=== PATIENT | male | born 1960 | race Caucasian/White ===

== ENCOUNTER → 2019-01-18 | Outpatient (CLI) | payer SELFPAY ==
[~2019-01-18] MED LIST: LISI20TA PO; MELO15TA28 PO; METF-414 PO; METF500T4 PO; PIOG1TAB36 PO; PRAV20TA2 PO
[2019-01-18 09:12] LABS: HEMATOCRIT 38.5 % (42.0-52.0); HEMOGLOBIN 13.4 g/dl (13.5-17.5); MEAN CORPUSCULAR HEMOGLOBIN 34.3 pg (27.0-33.0); MEAN CORPUSCULAR HGB CONC 34.8 g/dl (32.0-36.5); MEAN CORPUSCULAR VOLUME 98.5 fl (80.0-96.0); PLATELET COUNT, AUTOMATED 262 10^3/uL (150-450); RED BLOOD COUNT 3.91 10^6/uL (4.30-6.10); WHITE BLOOD COUNT 5.4 10^3/uL (4.0-10.0)
[2019-01-18 09:31] LABS: INR 0.94; PROTHROMBIN TIME 12.7 SECONDS (12.1-14.4)
--- NOTE | 2019-01-18 09:40 | REP ---
Clinical: Preoperative assessment . Comparison: None . Technique: PA and lateral. Findings: The mediastinum and cardiac silhouette are normal. Airway is patent and midline. 9 mm nodular density in the right upper lobe. The lung david are otherwise clear and without focal consolidation, effusion, or pneumothorax. Skeletal structures are intact. Impression: 1. 9 mm nodule in the right upper lobe likely calcified granuloma. However no prior examinations are available for comparison and outpatient follow-up CT examination may be warranted for confirmation. 2. Otherwise normal chest x-ray. Electronically Signed by Arslan Garcia MD 01/18/2019 09:32 A
[2019-01-18 09:49] LABS: ALBUMIN 3.9 GM/DL (3.2-5.2); ALT/SGPT 34 U/L (12-78); BILIRUBIN,TOTAL 0.6 MG/DL (0.2-1.0); BLOOD UREA NITROGEN 27 MG/DL (7-18); CALCIUM LEVEL 9.1 MG/DL (8.5-10.1); CARBON DIOXIDE LEVEL 29 MEQ/L (21-32); CHLORIDE LEVEL 103 MEQ/L (98-107); CREATININE FOR GFR 1.26 MG/DL (0.70-1.30); GLOMERULAR FILTRATION RATE > 60.0 (>56); GLUCOSE, FASTING 203 MG/DL (70-100); POTASSIUM SERUM 4.3 MEQ/L (3.5-5.1); SODIUM LEVEL 139 MEQ/L (136-145); TOTAL PROTEIN 7.5 GM/DL (6.4-8.2)
[2019-01-18 10:27] LABS: ERYTHROCYTE SEDIMENTATION RATE 29 mm/hr (0-20)
--- NOTE | 2019-01-18 14:22 | ECGEPIP ---
Stationary ECG Study [facility] Test Date: 2019-01-18 Pat Name: BRISEIDA GALLEGO Department: Room: - Gender: M Services Executive: [facility] : 1960 Requested By: Swetha Bob Order Number: [id number] Reading MD: Adrián Hernandez Measurements Intervals [place] Rate: 71 P: 37 CO: 138 QRS: 5 QRSD: 93 T: 25 QT: 386 QTc: 421 Interpretive Statements SINUS RHYTHM Baseline noise. Poor R wave progression. No prior ECG available for comparison at the time of interpretation. Electronically Signed On 01-18-2019 14:21:52 EST by Adrián Hernandez
== END ==
LOC: M LAB 08:34
PROVIDERS: ATTEND Orthopaedic Surgery
DX: M17.12 Unilateral primary osteoarthritis, left knee (principal); R91.1 Solitary pulmonary nodule; E11.9 Type 2 diabetes mellitus without complications; I10 Essential (primary) hypertension

== ENCOUNTER 2019-02-12 07:30 | Inpatient (IN) | payer SELFPAY ==
--- NOTE | 2019-02-05 15:11 | HPE ---
DATE OF PLANNED ADMISSION: 02/12/2019 ATTENDING PHYSICIAN: Dr. Paulino Mendoza CHIEF COMPLAINT: Left knee pain and stiffness. HISTORY This is a pleasant 58-year-old male patient with progressively worsening left knee pain and stiffness. He has failed conservative treatment and has elected for surgical intervention. He has been consented for a left total knee arthroplasty with Dr. Mendoza. ALLERGIES: No known drug allergies. CURRENT MEDICATIONS - Advil 200 mg two by mouth twice a day as needed - clotrimazole 1% external cream applied to affected area three times a day - glimepiride 2 mg one by mouth daily - lisinopril/hydrochlorothiazide 20 - 12.5, one by mouth daily - metformin 500 mg three by mouth daily, one in the morning, two in the evening - pioglitazone 15 mg one by mouth daily - pravastatin sodium 20 mg one by mouth daily at bedtime PAST MEDICAL HISTORY Diabetes type 2. Hypertension. Hyperlipidemia. PAST SURGICAL HISTORY Left knee arthroscopy and partial meniscectomy. Carpal tunnel release. SOCIAL HISTORY The patient does not smoke or consume alcohol. FAMILY HISTORY Father myocardial infarction ([place]), mother . Brother stroke. Sister leukemia. Two living sisters in good health. REVIEW OF SYSTEMS The patient denies fever, chills, chest pain, shortness breath, nausea, vomiting, diarrhea. He does report pain and stiffness with weightbearing activities in the left knee. PHYSICAL EXAMINATION Height 5 feet 2, weight 185.6, temperature 97.8, blood pressure 134/88, respirations 12, heart rate 78. The patient is well-developed, well-nourished, in no apparent distress. He is normocephalic, atraumatic. Neck is supple and nontender with no lymphadenopathy or jugular venous distention (JVD). S1 and S2 auscultated with no murmurs, rubs, gallops. Lungs: Clear to auscultation bilaterally with no wheezes, rales, or rhonchi. Abdomen: Soft, nontender. The left knee shows no obvious deformity. Overlying skin is intact with no erythema, ecchymosis or rashes. He has intact range of motion. The left lower extremity is well perfused. Intact neurovascular status. EKG with poor R-wave progression, normal sinus rhythm. Chest x-ray: No acute cardiopulmonary process. There is a 9 mm nodule in the right upper lobe, likely calcified granuloma. LABORATORY DATA Red blood count 3.91, hemoglobin 13.4, hematocrit 38.5, white blood count 5.4, ESR 29, BUN 27, creatinine 1.26 and PT 12.7, INR 0.94. Preoperative medical optimization by MARCIE Guzman and Dr. Saini reviewed and available today on the chart. ASSESSMENT Left knee symptomatic osteoarthritis. PLAN Consented for left total knee arthroplasty with Dr. Mendoza.
[2019-02-12] VITALS (7 sets, daily range): BP systolic 152–172; BP diastolic 83–97
[~2019-02-12] VITALS: Ht 160 cm; Wt 86.1 kg
[~2019-02-12 07:30] MED LIST changes: +ACETAMINOPHEN 500 MG TAB PO ONE; +LR 1,000 ML IV ONE
[2019-02-12] MEDS ORDERED: ceFAZolin 1GM INJ (J0690 PER 500MG) As Ordered ONE (09:09)
[2019-02-12] MEDS ORDERED: TRANEXAMIC ACID 100 MG/ML 10ML VIAL As Ordered ONE (09:09)
[2019-02-12] MEDS ORDERED: BUPIVACAINE LIPOSOME/PF 1.3% 20ML VIAL (13.3MG/ML)(EXPAREL)(C9290 PER1MG) As Ordered ONE (09:09)
[2019-02-12] MEDS ORDERED: EPINEPHrine INJ 1 MG/ML 1ML AMP As Ordered ONE (09:09)
[2019-02-12] MEDS ORDERED: BUPIVACAINE HCL 0.25% 10 ML VIAL As Ordered ONE (09:16)
[2019-02-12] MEDS ORDERED: GLIM2TA PO (09:19)
[2019-02-12] MEDS ORDERED: MIDAZOLAM INJ 2 MG/2 ML VIAL (J2250) As Ordered ONE ×2 (09:56→10:19)
[2019-02-12] MEDS ORDERED: fentaNYL 100 MCG/2 ML INJECTION (J3010) As Ordered ONE ×3 (09:56→13:21)
[2019-02-12] MEDS ORDERED: PROPOFOL 200 MG/20 ML VIAL As Ordered ONE ×4 (10:19→12:42)
[2019-02-12] MEDS ORDERED: BUPIVACAINE/DEXTROSE 0.75% 2 ML AMP As Ordered ONE (10:49)
[2019-02-12] MEDS ORDERED: fentaNYL 100 MCG/2 ML INJECTION (J3010) IV ONE (11:00)
[2019-02-12] MEDS ORDERED: MIDAZOLAM INJ 2 MG/2 ML VIAL (J2250) IV ONE (11:00)
[2019-02-12] MEDS ORDERED: PHENYLephrine HCL 500 MCG/5 ML (100MCG/ML) SYRINGE (J2370) As Ordered ONE (11:42)
[2019-02-12] MEDS: fentaNYL 100 MCG/2 ML INJECTION (J3010) IV PRN ×4 (13:22→13:45)
[2019-02-12] MEDS ORDERED: FLEET ENEMA PR PRN (13:30)
[2019-02-12] MEDS ORDERED: HYDROMORPHONE HCL 0.5 MG/ 0.5 ML SYRINGE (J1170 PER 1) IV PRN (13:30)
[2019-02-12] MEDS ORDERED: ONDANSETRON 4MG/2ML VIAL (J2405) IV PRN (13:30)
[2019-02-12] MEDS ORDERED: LR 1,000 ML IV SCH (13:30)
[2019-02-12] MEDS ORDERED: ACETAMINOPHEN TAB 650MG DOSE (2X325MG) PO PRN (13:30)
[2019-02-12] MEDS ORDERED: dexameTHASONE 10 MG/1 ML VIAL PRES.FREE (J1100) ONE (14:13)
[2019-02-12] MEDS ORDERED: ROPIvacaine 0.5% 30 ML INJECTION (J2795 PER 1MG) ONE (14:13)
--- NOTE | 2019-02-12 14:31 | REP ---
KNEE SERIES: TWO VIEWS. HISTORY: Status post arthroplasty. FINDINGS: Two views of the left knee demonstrate that the patient is status post left knee arthroplasty. Tibial, femoral, and patellar prosthetic components are well aligned with respect to each other and their [place] bones. There is interarticular and periarticular soft tissue air. Anterior skin calli are seen. IMPRESSION: Status post left knee arthroplasty. Electronically Signed by Reese Wadsworth MD 02/12/2019 03:06 P
--- NOTE | 2019-02-12 14:34 | REP ---
Clinical: Evaluate for prostatic. Technique: Intraoperative fluoroscopic imaging using C-arm technique. Findings: Three images of the femur demonstrate an intramedullary gio. Total fluoroscopic time 6 seconds. Impression: Limited examination suggests intramedullary gio through portion of the femoral diaphysis. Electronically Signed by Arslan Garcia MD 02/12/2019 02:25 P
[2019-02-12] MEDS: HYDROMORPHONE HCL 0.5 MG/ 0.5 ML SYRINGE (J1170 PER 1) IV PRN ×3 (14:58→22:38)
[2019-02-12] MEDS ORDERED: ONDANSETRON 4 MG ORAL DISINTEGRATING TAB (Q0162 PER 1MG) PO PRN (16:45)
[2019-02-12] MEDS: LR 1,000 ML IV SCH (16:51)
[2019-02-12] MEDS: hydroCHLOROthiazide 12.5 MG CAPSULE PO SCH (19:02)
[2019-02-12] MEDS: LISINOPRIL 20 MG TAB PO SCH (19:02)
[2019-02-12] MEDS ORDERED: HumaLOG INSULIN (NovoLOG) PER UNIT SC SCH (21:00)
[2019-02-12] MEDS ORDERED: PRAVASTATIN 20 MG TAB PO SCH (21:00)
[2019-02-12] MEDS ORDERED: GLUCAGON FOR INJ 1 MG VIAL (J1610) SC PRN (22:45)
[2019-02-12] MEDS ORDERED: DEXTROSE 50% 50 ML SYRINGE IV PRN (22:45)
[2019-02-12] MEDS ORDERED: GLUCOSE 4 GM CHEW TABLET PO PRN (22:45)
[2019-02-13 02:00] VITALS: BP 147/81
[2019-02-13] MEDS: LR 1,000 ML IV SCH (02:00)
[2019-02-13] MEDS: HYDROMORPHONE HCL 0.5 MG/ 0.5 ML SYRINGE (J1170 PER 1) IV PRN (04:00)
[2019-02-13 06:00] VITALS: BP 128/71
[2019-02-13] MEDS ORDERED: PERCOCET 5MG/325MG TAB PO PRN (06:15)
[2019-02-13 07:01] LABS: HEMATOCRIT 32.8 % (42.0-52.0); HEMOGLOBIN 11.7 g/dl (13.5-17.5); MEAN CORPUSCULAR HEMOGLOBIN 34.4 pg (27.0-33.0); MEAN CORPUSCULAR HGB CONC 35.7 g/dl (32.0-36.5); MEAN CORPUSCULAR VOLUME 96.5 fl (80.0-96.0); PLATELET COUNT, AUTOMATED 274 10^3/uL (150-450); WHITE BLOOD COUNT 14.6 10^3/uL (4.0-10.0)
[2019-02-13 07:14] LABS: INR 1.04; PROTHROMBIN TIME 13.7 SECONDS (12.1-14.4)
[2019-02-13 07:19] LABS: BLOOD UREA NITROGEN 20 MG/DL (7-18); CALCIUM LEVEL 8.6 MG/DL (8.5-10.1); CARBON DIOXIDE LEVEL 27 MEQ/L (21-32); CHLORIDE LEVEL 99 MEQ/L (98-107); CREATININE FOR GFR 1.22 MG/DL (0.70-1.30); GLOMERULAR FILTRATION RATE > 60.0 (>56); GLUCOSE, FASTING 225 MG/DL (70-100); POTASSIUM SERUM 3.9 MEQ/L (3.5-5.1); SODIUM LEVEL 135 MEQ/L (136-145)
[2019-02-13] MEDS ORDERED: GLIMEPIRIDE 1 MG TABLET PO SCH (07:30)
[2019-02-13] MEDS: hydroCHLOROthiazide 12.5 MG CAPSULE PO SCH (08:20)
[2019-02-13] MEDS: HumaLOG INSULIN (NovoLOG) PER UNIT SC SCH ×2 (08:21→12:00)
[2019-02-13] MEDS: PERCOCET 5MG/325MG TAB PO PRN ×2 (08:22→12:33)
[2019-02-13 08:23] VITALS: BP 142/79
[2019-02-13] MEDS: LISINOPRIL 20 MG TAB PO SCH (08:23)
[2019-02-13] MEDS ORDERED: PERC5TAB12 PO (08:41)
[2019-02-13] MEDS ORDERED: XARE10TA PO (08:41)
[2019-02-13] MEDS ORDERED: MIRALAX *UNIT DOSE* 17GM PACKET PO SCH (09:00)
[2019-02-13] MEDS ORDERED: MOM 30ML SUSPENSION UDC PO SCH (09:00)
--- NOTE | 2019-02-13 09:03 | CR ---
DATE OF CONSULTATION: 02/12/2019 REASON FOR MEDICAL CONSULTATION: Postoperative medical management. The patient is a 58-year-old male with past medical history of diabetes, hypertension, hyperlipidemia, and osteoarthritis of the left knee who presents this hospitalization for elective left total knee replacement which was done successfully today by Dr. Mendoza. The patient at this time feels a bit nauseous and received IV Zofran, but the pain is under control at 0 out of 10, currently on IV Dilaudid. He denies any chest pain or shortness of breath. Again, past medical history of hypertension, diabetes, hyperlipidemia, and history of osteoarthritis of left knee. He has no known drug allergies. FAMILY HISTORY: Noncontributory. SOCIAL HISTORY: The patient denies tobacco, alcohol or illicit drugs. MEDICATIONS: He takes at home are as follows: - glimepiride 1 mg orally daily - lisinopril 20 mg orally daily - hydrochlorothiazide 12.5 mg orally daily - metformin 500 mg orally daily - pravastatin 20 mg orally at bedtime REVIEW OF SYSTEMS: Negative all 10 major systems except as mentioned in history of present illness (HPI). VITAL SIGNS: Blood pressure 172/89. Heart rate 81 and regular. Respiratory rate 18. Temperature 98.5. Oxygen saturation 98% on room air. HEAD: Atraumatic, normocephalic. NECK: Supple. No jugular venous distention (JVD). LUNGS: Clear to auscultation. S1 and S2 audible. No murmurs appreciated. ABDOMEN: Soft. Positive bowel sounds. No pedal edema. SKIN: Intact. NEUROLOGIC EXAMINATION: Patient awake, alert and oriented times three. No labs to review. IMPRESSION: 1. Left total knee replacement. 2. Hypertension. 3. Diabetes. 4. Hyperlipidemia. PLAN: The patient at this time is stable. I recommend continuing IV Zofran as needed for his nausea. I believe it is secondary to the Dilaudid, but I still think the patient should receive his Dilaudid for knee pain. All of his medications have been reconciled and I believe his elevated blood pressure at this time is because he missed his medications and they were just administered to him. Will follow his blood pressure trends. Will continue following his care alongside orthopedics.
--- NOTE | 2019-02-13 09:10 | RO ---
DATE OF PROCEDURE: 02/12/2019 PREPROCEDURE DIAGNOSIS: Left knee degenerative arthritis. POSTPROCEDURE DIAGNOSIS: Left knee degenerative arthritis. PROCEDURE: Left total knee arthroplasty using a size 5 cruciate retaining femoral component, size 5 tibial tray with a 5 mm rotating platform polyethylene insert and a 35 mm polyethylene button. All components were cemented. Prosthesis was made by [employer]. It was an [employer] knee. SURGEON: Dr. Swetha Mendoza. FOOD ORDER DELIVERY RUNNER: Mr. Ranjith Thornton ANESTHESIA: Spinal with left femoral nerve block. COMPLICATIONS: None. ESTIMATED BLOOD LOSS: About 100 mL. SPECIMENS: Joint surface. PROCEDURE: After a left femoral nerve block and then spinal anesthetic was induced, tourniquet was placed at left upper thigh and not-inflated. The left lower extremity was carefully prepped and draped in the usual sterile fashion. After appropriate time out and elevation, the tourniquet was inflated. A longitudinal incision was then made for medial parapatellar approach to the knee. Bovie cautery was used to coagulate the crossing vessels. Medial parapatellar arthrotomy was performed. Subperiosteal dissection was performed around the proximal, medial and lateral tibial plateaus. The patella was everted and the knee was flexed. The anterior cruciate ligament (ACL) was debrided. I placed the drill down the center of the trochlear notch, just above the posterior cruciate ligament (PCL). Trying to drill down into the femur, it seems as if we had hit a bony block. I was not certain if the angle was wrong. At this point, I called for x-ray to help us understand our alignment of the intramedullary gio to make sure that we get good accurate distal femoral cut and angulation. The T handle awls were also opened and I used the smallest one and eventually was able to find my way down the femoral canal. Under fluoroscopic imaging using the C-Arm, after sterile draping of the C-Arm, I managed to get good C-Arm images in both AP and lateral planes, confirming that this was down the center of the femoral canal. We did not penetrate. There were no other pathology of the femur that would cause this femur to have a bony block. It was expanded with T handle reamer. Subsequently, intramedullary gio could go down the femur. The distal femoral cutting jig was applied. Prior to this, as we were waiting for C-Arm, I did release the tourniquet. Hemostasis was secured with Bovie cautery and I copiously irrigated. We took the tourniquet down for most of the case until the time we were preparing for cementing, because the bleeding was not excessive and I felt we had reasonable visualization without the tourniquet. The distal femoral cutting jig was then applied, set at a 5 degree valgus cut for a left knee at 9 mm resection level. The distal femoral cut was performed. AP sizing jig sized for a number 5 femur. Then 3 degrees of external rotation were dialed in and the pins were placed, followed by the 4-in-1 block and the anterior and posterior chamfer cuts were performed. We then placed the jig for the notch plasty. The notch plasty was performed. Then we exposed the proximal tibia, used the extramedullary gio to estimate being parallel to the mechanical access. We referenced off the medial tibial condyle at 4 mm and then the block was pinned into position. Secondary check of the extramedullary gio confirmed we appeared to be parallel to the mechanical axis. The proximal tibial osteotomy was then performed. The laminar custom stock maker was placed medially and we performed a completion lateral meniscectomy with debridement of the posterior and lateral osteophytes. We then placed the laminar custom stock maker laterally and performed a completion medial meniscectomy and debridement of posterior and medial osteophytes. The spacer block was applied and a 6 mm was a little snug and 5 mm fit very nicely with good symmetry to varus and valgus stress testing both in flexion and in extension. We then exposed the proximal tibia and sized for a #5 tibial tray, which was then pinned into position, followed by the reamer and broach. The trial tibial component was placed, followed by the trial femoral component. We brought the knee into extension, everted the patella and performed a patellar osteotomy and sized for a 35 mm button. The lug holes were drilled. The trial was placed, and the patellofemoral tracking was anatomic. At this point, we removed all the trial components, copiously irrigated out the knee joint, placed Exparel in the subperiosteal tissues around the distal femur and the proximal tibia and then Mr. Thornton mixed the cement on the back table as I prepared the bony surfaces for cementing. We elevated the leg once again and then inflated the tourniquet to 150 mmHg of mercury. We copiously pulsatile lavage irrigated out the knee joint and all the bony debris and dried all the surfaces thoroughly. Mr. Thornton was also critical to the success of this difficult operating by helping with appropriate soft tissue retraction, helped to flex and extend the knee, helped to mix the cement, helped to close the wound, helped to prepare the patient amongst many other tasks to allow me to do the operation smoothly and efficiently. We then cemented the tibial tray and removed excess cement and placed the polyethylene, cemented the femoral component and removed excess cement and brought the knee into extension. We then cemented the patellar button and removed excess cement, held it with a clamp with the knee in extension until the cement hardened. As we were waiting this, we copiously pulsatile lavage irrigated out the knee joint and placed tranexamic acid. We then began closing the apex of the arthrotomy with two #1 PDS sutures. The medial parapatellar was closed with a #1 PDS suture and then a double armed running #1 Stratafix was used to close the capsule.. The tourniquet was released once again. We copiously irrigated out the subdermal tissues, closed with interrupted #2-0 PDS sutures, skin was closed with calli, covered by Optifoam and a dry, sterile, bulky dressing. He was then transferred to the recovery room in stable condition. There were no intraoperative complications. YANN
[2019-02-13] MEDS ORDERED: RIVAROXABAN 10 MG TAB (XARELTO) PO SCH (18:00)
== END 2019-02-13 12:45 | disposition home or self-care (01) | DRG 302 ==
LOC: M OR 08:18 → M MS5PR 14:41
PROVIDERS: ADMIT Orthopaedic Surgery; ATTEND Orthopaedic Surgery
PROC: 0SRD0J9 Replacement of Left Knee Joint with Synthetic Substitute, Cemented, Open Approach (ICD-10-PCS; principal; 2019-02-12 11:30)
DX: M17.12 Unilateral primary osteoarthritis, left knee (principal); I10 Essential (primary) hypertension; E11.9 Type 2 diabetes mellitus without complications; E78.5 Hyperlipidemia, unspecified; Z79.899 Other long term (current) drug therapy